=== PATIENT | male | born 1990 | race Caucasian/White ===

== ENCOUNTER 2024-12-18 12:14 | Emergency (ER) | payer BC ==
[2024-12-18] MEDS: Ketorolac 30 MG/ML SDV IVPUSH ONE (12:45)
[2024-12-18 12:48] LABS: BASOPHILS PERCENT AUTO 0.4 % (0.0-1.0); EOSINOPHILS PERCENT AUTO 6.4 % (1.0-3.0); LYMPHOCYTES PERCENT AUTO 32.5 % (20.5-50.1); MONOCYTES PERCENT AUTO 8.1 % (2-8); NEUTROPHILS PERCENT AUTO 52.6 % (42.2-75.2); PLATELET COUNT,PLT 233 10^3/uL (150-450); RED BLOOD CELL COUNT 5.44 10^6/uL (4.6-6.2); WHITE BLOOD CELL COUNT,WBC 9.6 10^3/uL (5.0-10.0)
[2024-12-18] MEDS: Ondansetron 4 MG/2 ML SDV IVPUSH ONE (12:56)
[2024-12-18 13:08] LABS: A/G RATIO 1.1; ALANINE AMINOTRANSFERASE,ALT 110.0 U/L (16-63); ASPARTATE AMNIOTRANSFERASE,AST 44.0 U/L (15-37); BILIRUBIN TOTAL 1.3 mg/dL (0.2-1.0); BLOOD UREA NITROGEN,BUN 17.0 mg/dL (7-18); CARBON DIOXIDE,CO2 27.0 mmol/L (21-32); CHLORIDE,CL 103.0 mmol/L (98-107); CREATININE 0.99 mg/dL (0.70-1.30); EST CRCL DRUG DOSING (CG) 119.93 mL/min; ESTIMATED GFR 101.0 mL/min (>=60); GLUCOSE RANDOM 133.0 mg/dL (70-99); POTASSIUM,K 4.2 mmol/L (3.5-5.1); PROTEIN TOTAL,TP 8.4 g/dL (6.4-8.2); SODIUM,NA 139.0 mmol/L (136-145)
[2024-12-18 13:34] LABS: APPEARANCE,URINE SLIGHTLY CLOUDY (CLEAR); GLUCOSE,URINE NEGATIVE (NEGATIVE); OCCULT BLOOD,URINE LARGE (NEGATIVE)
[2024-12-18 13:46] LABS: EPITHELIAL CELLS,URINE FEW /HPF (NOT SEEN)
[2024-12-18] MEDS: Take Home: Acetaminophen/HYDROcodone 325-5 MG, 5 Tab Pack PO ONE (14:14)
== END 2024-12-18 14:18 | disposition home or self-care (01) ==
LOC: DL.ED 12:14
DX: N13.2 Hydronephrosis with renal and ureteral calculous obstruction (principal)
CPT/HCPCS: 36415; 74176; 80053; 81001; 85025; 87086; 96361; 96374; 96375; 99284; A9270; J1885; J2405; J7030